=== PATIENT | female | born 1990 | race Caucasian/White ===

== ENCOUNTER 2018-07-11 13:04 | Inpatient (IN) | payer OTHER ==
[~2018-07-11] VITALS: Ht 167.6 cm; Wt 129.3 kg
[2018-07-11 13:16] VITALS: Ht 167.6 cm; Wt 129.3 kg
[2018-07-11 13:17] VITALS: BP 153/73; PULSE 102; RESP 17
[2018-07-11] MEDS ORDERED: OXYTOCIN 30 UNITS/LR 500 ML IV PRN (16:00)
[2018-07-11] MEDS ORDERED: LIDOCAINE 1% (MPF) 30 ML INJ INJ PRN (16:00)
[2018-07-11] MEDS ORDERED: MISOPROSTOL 200 MCG TAB PR PRN (16:00)
[2018-07-11] MEDS ORDERED: METHYLERGONOVINE 0.2 MG INJ IM PRN (16:00)
[2018-07-11] MEDS ORDERED: OXYTOCIN 30 UNITS/LR 500 ML IV SCH (16:00)
[2018-07-11] MEDS: MISOPROSTOL 50 MCG CAPSULE PO SCH ×2 (17:06→21:12)
[2018-07-11] MEDS: LACTATED RINGER'S 1,000 ML IV SCH ×2 (17:06→23:03)
--- NOTE | 2018-07-11 19:11 | HP ---
Date/Time of Note Date/Time of Note DATE: 07/11/18 TIME: 19:08 OB - History Hx of Present Chief Complaint: elevated BP in clinic Estimated Due Date: Jul 20, 2018 : 1 Para: 0 Spontaneous : 0 Therapeutic : 0 Care: Good Care Ultrasounds: Normal mid trimester US Obstetrical Complications: None Medical Complications: None Past Family/Social History * Past Medical, Surgical, Family and Obstetric Histories reviewed from chart. GBS Status: Negative OB Admission Exam Vital Signs Vital Signs Vital Signs Date Temp Pulse Resp B/P (MAP) Pulse Ox O2 O2 Flow FiO2 Time Delivery Rate 07/11/18 98.3 102 17 153/73 13:17 (99) Physical Exam HEENT: WNL Heart: Rhythm Normal Lungs: Clear, Equal Abdomen: WNL Extremities: Normal Reflexes: Normal Cervical Dilatation: Fingertip Effacement: 50% Station: -2 Membranes: Intact Heart Rate: 120's Accelerations: Accelerations Present Decelerations: No Decelerations Varibility: Moderate Last 72 hours Lab Results CBC & BMP 07/11/18 13:40 Liver Function Test 07/11/18 13:40 Alanine Aminotransferase (ALT/SGPT) 10 L Albumin 3.4 Alkaline Phosphatase 196 H Aspartate Amino Transf (AST/SGOT) 17 Direct Bilirubin 0.00 Total Protein 6.7 OB Assessment/Plan Reason for admission: induction of labor Other Assessment: oligohydramnios Plan: Induction Induction Method: per Misoprostol Protocol KIRSTIN TALBERT MD Jul 11, 2018 19:11
[2018-07-12] MEDS: MISOPROSTOL 50 MCG CAPSULE PO SCH ×5 (04:33→19:00)
[2018-07-12] MEDS: LACTATED RINGER'S 1,000 ML IV SCH ×2 (06:32→15:23)
[2018-07-13] MEDS: LACTATED RINGER'S 1,000 ML IV SCH ×5 (00:26→13:12)
[2018-07-13] MEDS ORDERED: OXYTOCIN 30 UNITS/LR 500 ML IV SCH (01:00)
[2018-07-13] MEDS ORDERED: BUTORPHANOL 2 MG INJ ONE ×2 (02:34→02:38)
[2018-07-13] MEDS: BUTORPHANOL 2 MG INJ IV PRN ×2 (02:43→07:12)
--- NOTE | 2018-07-13 06:51 | PREAC ---
Date/Time of Note Date/Time of Note DATE: 07/13/18 TIME: 06:48 Anesthesia Eval and Record Evaluation Time Pre-Procedure Interview DATE: 07/13/18 TIME: 06:48 Age 27 Sex female NPO: 8 hrs Preoperative diagnosis Planned procedure epidural Past Medical History Past Medical History: Includes GI: Morbid obesity Surgery & Anesthesia Issues No known issue Meds Anticoagulation: No Beta Jinny within 24 hr: No Reason Beta Jinny not given: Pt. not on B-Jinny Current Medications Lactated Ringer's 1,000 ml @ 125 mls/hr Q8H IV Last administered on 07/13/18at 06:40; Admin Dose 125 MLS/HR; Start 07/11/18 at 15:45 Lidocaine (Xylocaine 1% (Mpf)) 30 ml ONCE PRN INJ .EPISIOTOMY; Start 07/11/18 at 16:00 Oxytocin/Lactated Ringer's 500 ml @ 500 mls/hr ONCE POST IV ; Start 07/11/18 at 16:00 Oxytocin/Lactated Ringer's 500 ml @ 125 mls/hr POST IV ; Start 07/11/18 at 16:00 Oxytocin/Lactated Ringer's 500 ml @ 0 mls/hr ONCE PRN IV .VAGINAL BLEEDING; Start 07/11/18 at 16:00 Methylergonovine Maleate (Methergine) 0.2 mg ONCE PRN IM .VAGINAL BLEEDING; Start 07/11/18 at 16:00 Carboprost Tromethamine (Hemabate) 250 mcg ONCE PRN IM .VAGINAL BLEEDING; Start 07/11/18 at 16:00 Misoprostol (Cytotec) 1,000 mcg ONCE PRN AL .VAGINAL BLEEDING; Start 07/11/18 at 16:00 Oxytocin/Lactated Ringer's 500 ml @ 0 mls/hr FOR INDUCTION IV Last administered on 07/13/18at 01:14; Admin Dose 1 MLS/HR; Start 07/13/18 at 01:00 Butorphanol Tartrate (Stadol) 2 mg Q2H PRN IV PAIN Last administered on 07/13/18at 02:43; Admin Dose 2 MG; Start 07/13/18 at 03:00 Meds reviewed: Yes Allergies Coded Allergies: No Known Allergy (Unverified , 07/11/18) Allergies Reviewed: Yes Labs/Studies Labs Reviewed: Reviewed by anesthesiologist Result Diagram: 07/11/18 1340 07/11/18 1340 test: Positive Pre-procedure Exam Last vitals Vital Signs Date Temp Pulse Resp B/P (MAP) Pulse Ox O2 O2 Flow FiO2 Time Delivery Rate 07/11/18 98.3 102 17 153/73 13:17 (99) Airway: Adequate mouth opening, Adequate thyromental dist Mallampati: Mallampati II Teeth: Normal Lung: Normal Heart: Normal ASA Physical Status ASA physical status: 2 Emergency: None Planned Anesthetic Neuraxial: Epidural Pre-operative Attestations Prior to commencing anesthesia and surgery, the patient was re-evaluated, there was verification of: *The patient's identity *The results of appropriate recent lab work and preoperative vital signs *The above evaluation not changing prior to induction *Anesthetic plan, risk benefits, alternative and complications discussed with patient/family; questions answered; patient/family understands, accepts and wishes to proceed. NAUN JEAN BAPTISTE Jul 13, 2018 06:50
[2018-07-13] MEDS ORDERED: HYDROmorphONE 0.5 MG/0.5 ML SYG IV PRN ×2 (07:00)
[2018-07-13] MEDS ORDERED: NALOXONE (0.4 MG/ML) INJ IV PRN ×2 (07:00→08:30)
[2018-07-13] MEDS ORDERED: FENTAnyl 2MCG/ML-ROPIV 0.2% 100 ML BAG EPI SCH ×2 (07:00→08:30)
[2018-07-13] MEDS ORDERED: KETOROLAC 30 MG INJ IV PRN (07:00)
[2018-07-13] MEDS ORDERED: DIPHENHYDRAMINE 50 MG INJ IV PRN (07:00)
[2018-07-13] MEDS ORDERED: ONDANSETRON 4 MG INJ IV PRN ×2 (07:00→08:30)
--- NOTE | 2018-07-13 07:33 | QN ---
Documentation Comment at 39 w in labor called for resinsertion of IUPC because previously inserted IUPC fell out VE /-2 IUPC was inserted without any diffculties. internal lead was also applied. EDMUNDO GOFF MD Jul 13, 2018 07:33
--- NOTE | 2018-07-13 10:25 | PAC ---
Date/Time of Note Date/Time of Note DATE: 07/13/18 TIME: 10:25 Post-Anesthesia Notes Post-Anesthesia Note Last documented vital signs Vital Signs Date Temp Pulse Resp B/P (MAP) Pulse Ox O2 O2 Flow FiO2 Time Delivery Rate 07/11/18 98.3 102 17 153/73 99 10:17 (99) Activity: WNL Respiratory function: WNL Cardiovascular function: WNL Mental status: Baseline Pain reasonably controlled: Yes Hydration appropriate: Yes Nausea/Vomiting absent: No PABLO DE LA CRUZ MD Jul 13, 2018 10:25
[2018-07-13] MEDS: CARBOPROST 250 MCG INJ IM PRN ×2 (14:29→14:57)
[2018-07-13] MEDS ORDERED: DIPHENOXYLATE/ATROPINE TAB PO ONE (14:30)
[2018-07-13] MEDS: OXYTOCIN 30 UNITS/LR 500 ML IV SCH ×2 (14:59→19:29)
[2018-07-13] MEDS ORDERED: TRANEXAMIC ACID 1GM/100ML(PMX) 100 ML IV ONE (15:00)
[2018-07-13] MEDS ORDERED: CEFAZOLIN 2 GM/50 ML (PMX) 50 ML IVPB ONE (16:00)
--- NOTE | 2018-07-13 16:48 | LDN ---
Date/Time of Note Date/Time of Note DATE: 07/13/18 TIME: 16:42 Delivery Summary over intact perineun. Placenta and membranes delivered spontaneously and complete. Uterine atony noted, Hemabate, Cytotec, mathergine and tranexamic acid given. Using a large sharp curette, sharp curettage performed. Uterus subsequently became firm. Placenta Delivered: Spontaneously Meconium: none Episiotomy: No Laceration repair: Second deree perineal laceration repaired with 3-0 Vicryl and 3-0 chromic. Anesthesia type: Epidural Estimated blood loss: 1000 Sponge & Needle done & correct: Yes All needle counts correct: Yes Any foreign bodies felt in the: No Infant Delivery Information Sex Infant Sex: male Apgars 1 Minute: 9 5 Minute: 9 Suctioning Nose & mouth suctioned at sunny: No Delee suction performed: No Umbilical Cord Umbilical cord with: 3 Vessels Cord presentations: no nuchal cord Cord Blood was obtained: Yes Mother & Baby Disposition Disposition Mom & Baby to Maternity; Good: Yes KIRSTIN TALBERT MD Jul 13, 2018 16:48
[2018-07-13 17:10] VITALS: BP 98/54; PULSE 126; RESP 20
[2018-07-13] MEDS ORDERED: LACTATED RINGER'S 500 ML IV ONE (17:30)
[2018-07-13 17:40] VITALS: BP 106/54; PULSE 113; RESP 20
[2018-07-13 18:10] VITALS: BP 105/51; PULSE 120; RESP 20
[2018-07-13 18:40] VITALS: BP 114/59; PULSE 110; RESP 18
[2018-07-13 20:00] VITALS: BP 124/69; PULSE 109; RESP 16
[2018-07-13] MEDS ORDERED: ACETAMINOPHEN 325 MG TAB PO PRN (21:00)
[2018-07-13] MEDS ORDERED: HYDROCODONE/APAP (5/325) TAB PO PRN (21:00)
[2018-07-13] MEDS ORDERED: BENZOCAINE 20% 56 ML SPRAY TOP PRN (21:00)
[2018-07-13] MEDS ORDERED: DIBUCAINE 1% 30 GM OINT TOP PRN (21:00)
[2018-07-13] MEDS ORDERED: WITCH HAZEL/GLYCERIN PAD PR PRN (21:00)
[2018-07-13] MEDS ORDERED: OXYTOCIN 30 UNITS/LR 500 ML IV PRN (21:00)
[2018-07-13] MEDS ORDERED: MISOPROSTOL 200 MCG TAB PR PRN (21:00)
[2018-07-13] MEDS ORDERED: CARBOPROST 250 MCG INJ IM PRN (21:00)
[2018-07-13] MEDS ORDERED: METHYLERGONOVINE 0.2 MG INJ IM PRN (21:00)
[2018-07-13] MEDS: SENNA/DOCUSATE NA (8.6MG/50MG) TAB PO SCH (21:59)
[2018-07-13] MEDS: LACTATED RINGER'S 1,000 ML IV* SCH (23:56)
[2018-07-13] MEDS: IBUPROFEN 600 MG TAB PO SCH (23:58)
[2018-07-14] VITALS: BP 106/47; PULSE 108; RESP 20
[2018-07-14 04:00] VITALS: BP 92/44; PULSE 78; RESP 16
[2018-07-14] MEDS: LACTATED RINGER'S 1,000 ML IV* SCH ×3 (04:32→20:32)
[2018-07-14] MEDS: IBUPROFEN 600 MG TAB PO SCH ×3 (06:08→18:00)
[2018-07-14 08:30] VITALS: BP 104/56; PULSE 86; RESP 18
[2018-07-14] MEDS: SENNA/DOCUSATE NA (8.6MG/50MG) TAB PO SCH ×2 (09:00→22:14)
[2018-07-14 16:00] VITALS: BP 120/70; PULSE 79; RESP 18
--- NOTE | 2018-07-14 17:42 | QN ---
Documentation Comment No complaint Afebrile VSS Fundus firm Lochia scant Hgb 7.1 Stable PPD #1 Fe supplement repeat CBC in AM. KIRSTIN TALBERT MD Jul 14, 2018 17:42
[2018-07-14 20:30] VITALS: BP 110/51; PULSE 91; RESP 16
[2018-07-14] MEDS: FERROUS SULFATE (EC) 325 MG TAB PO SCH (22:14)
[2018-07-15] MEDS: IBUPROFEN 600 MG TAB PO SCH ×4 (00:54→17:34)
[2018-07-15 04:10] VITALS: BP 99/52; PULSE 82; RESP 18
[2018-07-15] MEDS: LACTATED RINGER'S 1,000 ML IV* SCH (04:32)
[2018-07-15 07:30] VITALS: BP 118/51; PULSE 68; RESP 18
[2018-07-15] MEDS: SENNA/DOCUSATE NA (8.6MG/50MG) TAB PO SCH ×2 (08:44→21:00)
[2018-07-15] MEDS: FERROUS SULFATE (EC) 325 MG TAB PO SCH ×3 (08:44→21:02)
[2018-07-15] MEDS ORDERED: DIPHTH/TET/ACEL PERTUSS (ADULT) 0.5 ML VIAL IM* ONE (09:00)
[2018-07-15 15:30] VITALS: BP 135/65; PULSE 80; RESP 16
--- NOTE | 2018-07-15 15:51 | QN ---
Documentation Comment No complaint Afebrile VSS Fundus firm lochia moderate Hgb 6.7 PPD #2 stable Patient is offered blood transfusion. Patient declines Continue Fe supplement Repeat CBC in AM. KIRSTIN TALBERT MD Jul 15, 2018 15:51
[2018-07-15] MEDS: FOLIC ACID 1 MG TAB PO SCH (17:33)
[2018-07-15 19:20] VITALS: BP 128/65; PULSE 83; RESP 18
[2018-07-16] MEDS: IBUPROFEN 600 MG TAB PO SCH ×3 (00:16→12:34)
[2018-07-16 00:37] VITALS: BP 130/68; PULSE 80; RESP 19
[2018-07-16 03:15] VITALS: BP 121/67; PULSE 76; RESP 19
[2018-07-16 08:00] VITALS: BP 103/55; PULSE 57; RESP 17
[2018-07-16] MEDS: FOLIC ACID 1 MG TAB PO SCH (09:23)
[2018-07-16] MEDS: SENNA/DOCUSATE NA (8.6MG/50MG) TAB PO SCH (09:23)
[2018-07-16] MEDS: FERROUS SULFATE (EC) 325 MG TAB PO SCH ×2 (09:23→12:35)
--- NOTE | 2018-07-16 11:48 | DS ---
Date/Time of Note Date/Time of Note DATE: 07/16/18 TIME: 11:47 Obstetrical Discharge Record Final Diagnosis Final Diagnosis: Term delivered Other Final Diagnosis hemorrhage anemia associated with acute blood loss Vaginal Delivery Obstetrical Delivery: Spontaneous Condition on Discharge Physical Assessment Voiding: Yes Bowel Movement: Yes Breast: Soft, non-tender, Filling Fundus: Firm Calf Tenderness: No Patient Condition: Stable KIRSTIN TALBERT MD Jul 16, 2018 11:48
--- NOTE | 2018-07-16 11:50 | QN ---
Documentation Comment Patient has no complaint. Patient denies any dizziness or light headedness. Afebrile VSS Lochia scant Hgb 6.8 Patient declines blood transfusion. KIRSTIN TALBERT MD Jul 16, 2018 11:50
--- NOTE | 2018-07-17 15:10 | DELSUM ---
Delivery Summary A-C Datetime Report Generated by CPN: 07/17/2018 15:10 DELIVERY PERSONNEL Parts Department Supervisor: Yusef Raymundoa MATERNAL INFORMATION Delivery Anesthesia: Local; Epidural Medications in Delivery: 30 UNITS OF PIT IN 500 CC LR/ SEE MD NOTES Delivery QBL (ml): 1000 Placenta Cultured: No Maternal Complications: None LABOR SUMMARY EDC: 07/20/2018 00:00 No. Babies in Womb: 0 Attempted: No Labor Anesthesia: Epidural LABOR INFORMATION Reason for Induction: Gest. HTN/PreEclam/Eclamp Onset of Labor: 07/11/2018 13:00 Complete Dilatation: 07/13/2018 09:45 Cervical Ripening Agents: Cytotec @ Oxytocin: Induction Group B Beta Strep: Negative Antibiotics # of Doses: 0 Steroids Given: None Reason Steroids Not Administered: Not Applicable MEMBRANES Membranes Rupture Method: Artificial Rupture of Membranes: 07/12/2018 18:30 Length of Rupture (hr): 19.78 Amniotic Fluid Color: Clear Amniotic Fluid Amount: Small Amniotic Fluid Odor: None STAGES OF LABOR Stage 1 hr: 44 Stage 1 min: 45 Stage 2 hr: 4 Stage 2 min: 32 Stage 3 hr: 0 Stage 3 min: 5 Total Time in Labor hr: 49 Total Time in Labor min: 22 VAGINAL DELIVERY Episiotomy: None Laceration Extension: Second Degree Laceration Type: Perineal Laceration Repair: Yes Initial Vag Sponge Count: 10 Final Vag Sponge Count: 10 Initial Vag Sharps Count: 5 Final Vag Sharps Count: 5 Sponge Count Correct: Yes; Vaginal Sweep Performed Sharps Count Correct: Yes BABY A INFORMATION Infant Delivery Date/Time: 07/13/2018 14:17 Method of Delivery: Vaginal Born in Route : No : N/A Forceps: N/A Vacuum Extraction: N/A Shoulder Dystocia : N/A SHOULDER DYSTOCIA BABY A Infant Delivery Date/Time: 07/13/2018 14:17 PRESENTATION/POSITION BABY A Presentation: Cephalic Cephalic Presentation: Vertex Vertex Position: Left Occipital Posterior Breech Presentation: N/A PLACENTA INFORMATION BABY A Placenta Delivery Time : 07/13/2018 14:22 Placenta Method of Delivery: Spontaneous Placenta Status: Delivered SCORES BABY A Heart Rate 1 min: >100 bpm Resp Effort 1 min: Good Cry Reflex Irritability 1 min: Cough/Sneeze/Pulls Away Muscle Tone 1 min: Active Motion Color 1 min: Body [place], Extremit Blue Resuscitation Effort 1 min: Tactile Stimulation SCORE 1 MIN: 9 Heart Rate 5 min: >100 bpm Resp Effort 5 min: Good Cry Reflex Irritability 5 min: Cough/Sneeze/Pulls Away Muscle Tone 5 min: Active Motion Color 5 min: Body [place], Extremit Blue SCORE 5 MIN: 9 INFANT INFORMATION BABY A Gestational Age at Delivery: 38.0 Gestational Status: Early Term- 37- 38.6 Weeks Infant Outcome : Liveborn Condition : Stable Sex: Male IDENTIFICATION/MEDS BABY A ID Band Number: [id number] ID Band Location: Right Leg; Left Arm Sensor Applied: Yes Sensor Number: [id number] Sensor Location : Cord Clamp Vitamin K Given : Not Given Erythromycin Given: Not Given WEIGHT/LENGTH BABY A Infant Birthweight (gm): 3565 Weight (lb): 7 Infant Weight (oz): 14 Length (in): 21.00 Length (cm): 53.34 CORD INFORMATION BABY A No. Cord Vessels: 3 Nuchal Cord : N/A Cord Blood Taken: Yes Infant Suction: Mouth
--- NOTE | 2018-07-18 07:24 | PAC ---
Date/Time of Note Date/Time of Note DATE: 07/18/18 TIME: 07:24 Post-Anesthesia Notes Post-Anesthesia Note Last documented vital signs Vital Signs Date Temp Pulse Resp B/P (MAP) Pulse Ox O2 O2 Flow FiO2 Time Delivery Rate 07/16/18 98.1 57 17 103/55 Room Air 08:00 (71) Activity: WNL Respiratory function: WNL Cardiovascular function: WNL Mental status: Baseline Pain reasonably controlled: Yes Hydration appropriate: Yes Nausea/Vomiting absent: Yes NAUN JEAN BAPTISTE Jul 18, 2018 07:24
== END 2018-07-16 14:45 | disposition home or self-care (01) | DRG 768 ==
LOC: OBT 13:04 → L-D 13:04 → OBT 15:43 → L-D 15:43 → PP1 07-13 20:31
PROVIDERS: ADMIT Obstetrics & Gynecology; ATTEND Obstetrics & Gynecology
PROC: 10E0XZZ Delivery of Products of Conception, External Approach (ICD-10-PCS; principal; 2018-07-13)
PROC: 0UDB7ZZ Extraction of Endometrium, Via Natural or Artificial Opening (ICD-10-PCS; 2018-07-13)
PROC: 0KQM0ZZ Repair Perineum Muscle, Open Approach (ICD-10-PCS; 2018-07-13)
PROC: 10H073Z Insertion of Monitoring Electrode into Products of Conception, Via Natural or Artificial Opening (ICD-10-PCS; 2018-07-13)
PROC: 4A1H7CZ Monitoring of Products of Conception, Cardiac Rate, Via Natural or Artificial Opening (ICD-10-PCS; 2018-07-13)
DX: O41.03X0 Oligohydramnios, third trimester, not applicable or unspecified (principal); Z37.0 Single live birth; O72.1 Other immediate postpartum hemorrhage; D62 Acute posthemorrhagic anemia; O99.214 Obesity complicating childbirth; E66.01 Morbid (severe) obesity due to excess calories; O70.1 Second degree perineal laceration during delivery; Z3A.38 38 weeks gestation of pregnancy; Z23 Encounter for immunization
CPT/HCPCS: 62322; 76815; 76818; 80053; 81001; 84560; 85025; 86592; 86850; 86900; 86901; 87340; 99464; G0463; J0595; J0690; J2210; J2405; J2590; J3010; J7120

== ENCOUNTER 2018-07-21 15:24 | Emergency (ER) | payer OTHER ==
[~2018-07-21] VITALS: Ht 167.6 cm; Wt 119.5 kg
[2018-07-21 15:30] VITALS: RESP 18; Ht 167.6 cm; Wt 119.5 kg
[2018-07-21] MEDS ORDERED: SOD CHLORIDE 0.9% 1,000 ML IV ONE ×2 (18:00)
[2018-07-21] MEDS ORDERED: CEFTRIAXONE 1 GM/50 ML (PMX) 50 ML IVPB ONE (20:00)
[2018-07-21 20:04] VITALS: BP 120/58; PULSE 83
[2018-07-21] MEDS ORDERED: ACET500C5 PO (20:04)
[2018-07-21] MEDS ORDERED: CEPH-443 PO (20:04)
--- NOTE | 2018-07-21 20:41 | ERD ---
ER Documentation Chief Complaint Chief Complaint VB, weakness X 3 days, Had baby vaginally 1.5 wks ago. HPI 27-year-old female patient who is a G1, P1 presents to ED complaining of new vaginal bleeding, had a previous history of gestational hypertension, borderline diabetes. States that she just delivered her baby on July 13, 2018. States that she was not symptomatic when she had a hemoglobin of 6.8, did not want a blood transfusion. Reports that recently she started to feel little bit lightheaded. Patient reports that she has had some dysuria. Denies any chest pain, shortness of breath, nausea, vomiting, urgency, frequency, hematuria, abdominal pain. ROS All systems reviewed and are negative except as per history of present illness. Medications Home Meds Active Scripts Acetaminophen* (Tylophen*) 500 Mg Capsule, 1 CAP PO Q6H PRN for PAIN AND OR ELEVATED TEMP, #20 CAP Prov:LILIANA BUTTS PA-C 07/21/18 Cephalexin* (Keflex*) 500 Mg Capsule, 500 MG PO QID for 7 Days, CAP Prov:LILIANA BUTTS PA-C 07/21/18 Allergies Allergies: Coded Allergies: No Known Allergy (Unverified , 07/11/18) PMhx/Soc Medical and Surgical Hx: pt denies Medical Hx, pt denies Surgical Hx Hx Alcohol Use: No Hx Substance Use: No Hx Tobacco Use: No Smoking Status: Never smoker FmHx Family History: No diabetes, No coronary disease Physical Exam Vitals Vital Signs Date Temp Pulse Resp B/P (MAP) Pulse Ox O2 O2 Flow FiO2 Time Delivery Rate 07/21/18 83 120/58 98 Room Air 20:04 (78) 07/21/18 98.4 99 18 146/74 99 15:30 (98) Physical Exam Const: [id number], well-nourished. In no acute distress. Head: Atraumatic, normocephalic Eyes: Normal Conjunctiva without injection. No purulent discharge. PERRLA. EOMI ENT: Normal external ear. Ear canal without erythema. Tympanic membrane pearly carmichael without effusion or bulging. Nasal canal clear with normal turbinates. Moist oropharynx without tonsillar exudates. Non-erythematous pharynx. Uvula midline. No drooling. No trismus. Neck: No cervical midline tenderness. Full range of motion. No meningismus. No cervical lymphadenopathy. No JVD. Resp: Clear to auscultation bilaterally. No wheezing, rhonchi, rales, or crackles. No accessory muscle use. No retractions. Cardio: Regular rate and rhythm. No murmurs, rubs or gallops. Abd: Soft, non tender, non distended. Normal bowel sounds. No palpable masses. No rebound tenderness. No guarding. Negative McBurney's Point. Negative Sawant's Sign. Skin: Normal skin turgor. No petechiae or rashes Back: No midline tenderness. No CVA tenderness. Ext: No cyanosis, or edema. Distal pulses intact bilaterally. Neur: Awake and alert. Normal gait. Normal coordination. Cranial Nerves II- VII intact. Normal finger to nose. Muscle strength 5/5. Sensation intact. Psych: Normal Mood and Affect Result Diagram: 07/21/18 1725 07/21/18 1725 Results 24 hrs Laboratory Tests Test 07/21/18 17:25 07/21/18 18:40 White Blood Count 9.3 10^3/ul Red Blood Count 3.43 10^6/ul Hemoglobin 9.6 g/dl Hematocrit 29.2 % Mean Corpuscular Volume 85.1 fl Mean Corpuscular Hemoglobin 28.0 pg Mean Corpuscular Hemoglobin Concent 32.9 g/dl Red Cell Distribution Width 14.7 % Platelet Count 611 10^3/UL Mean Platelet Volume 8.9 fl Immature Granulocytes % 2.300 % Neutrophils % 59.0 % Lymphocytes % 27.7 % Monocytes % 7.2 % Eosinophils % 3.2 % Basophils % 0.6 % Nucleated Red Blood Cells % 0.2 /100WBC Immature Granulocytes # 0.210 10^3/ul Neutrophils # 5.5 10^3/ul Lymphocytes # 2.6 10^3/ul Monocytes # 0.7 10^3/ul Eosinophils # 0.3 10^3/ul Basophils # 0.1 10^3/ul Nucleated Red Blood Cells # 0.0 10^3/ul Sodium Level 142 mmol/L Potassium Level 3.7 mmol/L Chloride Level 106 mmol/L Carbon Dioxide Level 25 mmol/L Anion Gap 11 Blood Urea Nitrogen 10 mg/dl Creatinine 0.59 mg/dl Est Glomerular Filtrat Rate mL/min > 60 mL/min Glucose Level 110 mg/dl Calcium Level 9.6 mg/dl Total Bilirubin 0.0 mg/dl Direct Bilirubin 0.00 mg/dl Indirect Bilirubin 0.0 mg/dl Aspartate Amino Transf (AST/SGOT) 26 IU/L Alanine Aminotransferase (ALT/SGPT) 29 IU/L Alkaline Phosphatase 132 IU/L Total Protein 7.2 g/dl Albumin 3.8 g/dl Globulin 3.40 g/dl Albumin/Globulin Ratio 1.11 Beta HCG, Quantitative < 2.4 mIU/ml Urine Color YELLOW Urine Clarity CLOUDY Urine pH 6.0 Urine Specific [place] 1.005 Urine Ketones NEGATIVE mg/dL Urine Nitrite NEGATIVE mg/dL Urine Bilirubin NEGATIVE mg/dL Urine Urobilinogen NEGATIVE mg/dL Urine Leukocyte Esterase 3+ Ashly/ul Urine Microscopic RBC 49 /HPF Urine Microscopic WBC > 182 /HPF Urine Squamous Epithelial Cells FEW /HPF Urine Bacteria FEW /HPF Urine Hemoglobin 3+ mg/dL Urine Glucose NEGATIVE mg/dL Urine Total Protein 1+ mg/dl Current Medications Medications Dose Sig/Shimon Start Time Status Last (Trade) Ordered Route PRN Stop Time Admin Dose Reason Admin Sodium 1,000 ml @ Q1H ONCE 07/21/18 DC 07/21/18 Chloride 1,000 mls/hr IV 18:00 17:51 07/21/18 18:59 Sodium 1,000 ml @ Q1H ONCE 07/21/18 DC Chloride 1,000 mls/hr IV 18:00 07/21/18 18:59 Ceftriaxone 50 ml @ ONCE ONCE 07/21/18 DC 07/21/18 Sodium 100 mls/hr IVPB 20:00 19:54 07/21/18 20:22 Procedures/MDM 27-year-old female patient with no significant past medical history presents ED complaining of vaginal bleeding, weakness started 3 days ago. Patient is afeb rile and nontoxic-appearing. CBC: Hemoglobin is 9.6. Patient is currently taking iron 3 times a day, has improved with her symptoms. Patient does not complain of any hemorrhaging or excessive vaginal bleeding at this time. No indication for blood transfusion at this time. Urine: No elevation in nitrites, 3+ leukocyte esterase, hematuria. Patient will be treated for urinary tract infection. Rh: O positive No indication for Rhogam at this time. IMPRESSION: Enlarged uterus without evidence of retained products of conception. No adnexal masses or free fluid. Patient's bleeding symptoms have stabilized while in the department. No products of conception. Low suspicion for symptomatic anemia, ectopic , sepsis, PID, appendicitis, ovarian torsion, tubo-ovarian abscess, surgical abdomen, or other emergent conditions. Patient was educated that there is a risk for threatened . Patient to follow up with [facility] in 2 days for further evaluation and treatment. Patient is to return sooner to the ED for any worsening symptoms. Patient's questions were answered. Patient understood and agreed with discharge plan. Departure Diagnosis: Primary Impression: Urinary tract infection Urinary tract infection type: site unspecified Hematuria presence: without hematuria Qualified Codes: N39.0 - Urinary tract infection, site not s pecified Additional Impression: Vaginal bleeding Condition: Stable Patient Instructions: After a Vaginal , Urinary Tract Infections in Women Referrals: [facility] YOU HAVE RECEIVED A MEDICAL SCREENING EXAM AND THE RESULTS INDICATE THAT YOU DO NOT HAVE A CONDITION THAT REQUIRES URGENT TREATMENT IN THE EMERGENCY DEPARTMENT. FURTHER EVALUATION AND TREATMENT OF YOUR CONDITION CAN WAIT UNTIL YOU ARE SEEN IN YOUR DOCTORS OFFICE WITHIN THE NEXT 1-2 DAYS. IT IS YOUR RESPONSIBILITY TO MAKE AN APPOINTMENT FOR FOLOW-UP CARE. IF YOU HAVE A PRIMARY DOCTOR --you should call your primary doctor and schedule an appointment IF YOU DO NOT HAVE A PRIMARY DOCTOR YOU CAN CALL OUR PHYSICIAN REFERRAL HOTLINE AT IF YOU CAN NOT AFFORD TO SEE A PHYSICIAN YOU CAN CHOSE FROM THE FOLLOWING [facility] [address] [facility] [address] [facility] [address] [facility] [address] [address] [facility] [address] [facility]. [facility] [address] [facility]. [facility]. [address] [facility] YOU HAVE RECEIVED A MEDICAL SCREENING EXAM AND THE RESULTS INDICATE THAT YOU DO NOT HAVE A CONDITION THAT REQUIRES URGENT TREATMENT IN THE EMERGENCY DEPARTMENT. FURTHER EVALUATION AND TREATMENT OF YOUR CONDITION CAN WAIT UNTIL YOU ARE SEEN IN YOUR DOCTORS OFFICE WITHIN THE NEXT 1-2 DAYS. IT IS YOUR RESPONSIBILITY TO MAKE AN APPOINTMENT FOR FOLOW-UP CARE. IF YOU HAVE A PRIMARY DOCTOR --you should call your primary doctor and schedule and appointment IF YOU DO NOT HAVE A PRIMARY DOCTOR YOU CAN CALL OUR PHYSICIAN REFERRAL HOTLINE AT . IF YOU CAN NOT AFFORD TO SEE A PHYSICIAN YOU CAN CHOSE FROM THE FOLLOWING [facility] INSTITUTIONS: [facility] [address] [place] [address] [facility] [address] [place] [address] [facility] [address] [place] [address] [facility] URGENT C[facility]/SPECIALTIES Additional Instructions: Call your primary care doctor TOMORROW for an appointment during the next 2-3 days.See the doctor sooner or return here if your condition worsens before your appointment time. LILIANA BUTTS PA-C Jul 21, 2018 20:41
== END 2018-07-21 20:10 | disposition home or self-care (01) ==
LOC: FTE 15:24
DX: N93.9 Abnormal uterine and vaginal bleeding, unspecified (principal); N39.0 Urinary tract infection, site not specified
CPT/HCPCS: 36415; 76856; 80053; 81001; 84702; 85025; 86850; 86900; 86901; 96374; 99285; J0696; J7030